=== PATIENT | female | born 1955 | race Caucasian/White ===

== ENCOUNTER 2017-05-05 10:42 | Outpatient (CLI) | payer BC | END 2017-05-05 10:43 | disposition home or self-care (01) | LOC: BICMAMMO 10:42 | PROVIDERS: ATTEND Internal Medicine | DX: Z12.31 Encounter for screening mammogram for malignant neoplasm of breast (principal) | CPT/HCPCS: 77063; 77067 ==

== ENCOUNTER 2018-04-13 08:34 | Outpatient (CLI) | payer BC ==
--- NOTE | 2018-04-13 11:26 | RAD ---
AIR CONTRAST ESOPHAGRAM: INDICATION: Dysphagia. FINDINGS: Swallowing mechanism is intact. Swallowing in the hypopharynx appears normal. The esophagus is unre markable. There is no stricture or mucosal lesion. There is a small sliding diaphragmatic hernia. Mild GE reflux was demonstrated when the patient is p laced recumbent. There is no evidence of luminal narrowing or stricture. A 12 mm barium tablet was swallowed and passed through the EG junction without difficulty. IMPRESSION: Small sliding diaphragmatic hernia with mild gastroesophageal reflux noted when the patient was place d recumbent. POS: NATHALIA
== END 2018-04-13 08:35 | disposition home or self-care (01) ==
LOC: RAD 08:34
PROVIDERS: ATTEND Internal Medicine Gastroenterology
DX: R13.10 Dysphagia, unspecified (principal); K44.9 Diaphragmatic hernia without obstruction or gangrene; K21.9 Gastro-esophageal reflux disease without esophagitis
CPT/HCPCS: 74220

== ENCOUNTER 2018-04-27 11:58 | Outpatient (CLI) | payer BC ==
--- NOTE | 2018-04-27 13:32 | ULT ---
THYROID ULTRASOUND: HISTORY: Dysphagia. COMPARISON: None. TECHNIQUE: Sagittal and transverse imaging of the thyroid gland is performed. FINDINGS: The thyroid gland has a homogeneous echotexture. No masses. The thyroid isthmus measures 0.2 cm. The right thyroid lobe measures 3.4 x 1.1 x 0.9 cm. The left thyroid lobe measures 1.0 x 0.5 x 3.3 c m. IMPRESSION: Unremarkable thyroid ultrasound. POS: SARINA
== END 2018-04-27 11:59 | disposition home or self-care (01) ==
LOC: BICULT 11:58
PROVIDERS: ATTEND Internal Medicine Gastroenterology
DX: R13.10 Dysphagia, unspecified (principal)
CPT/HCPCS: 76536

== ENCOUNTER 2018-08-21 10:24 | Outpatient (CLI) | payer BC ==
--- NOTE | 2018-08-21 11:26 | MMO ---
Bilateral MAMMO Bilat Screen [facility]. CLINICAL HISTORY: Patient is 63 years old and is seen for screening. The patient has no family history of breast cancer. The patient has no personal history of cancer. VIEWS: The views performed were: bilateral craniocaudal with tomosynthesis and bilateral mediolateral oblique with tomosynthesis. FILMS COMPARED: The present examination has been compared to prior imaging studies performed at [facility] on 01/20/2011, 03/01/2012, 03/02/2013, 02/20/2015 and 05/05/2017. MAMMOGRAM FINDINGS: There are scattered fibroglandular densities. There are no suspicious masses, suspicious calcifications, or new areas of architectural distortion. IMPRESSION: THERE IS NO MAMMOGRAPHIC EVIDENCE OF MALIGNANCY. A ROUTINE FOLLOW-UP MAMMOGRAM IN 1 YEAR IS RECOMMENDED. THE RESULTS OF THIS EXAM WERE SENT TO THE PATIENT. ACR BI-RADS Category 1 - Negative MAMMOGRAPHY NOTE: 1. A negative mammogram report should not delay a biopsy if a dominant of clinically suspicious mass is present. 2. Approximately 10% to 15% of breast cancers are not detected by mammography. 3. Adenosis and dense breasts may obscure an underlying neoplasm.
--- NOTE | 2018-08-21 11:38 | BD ---
BONE DENSITOMETRY USING DEXA: HISTORY: Postmenopausal screening for osteoporosis. FINDINGS: Lumbar Spine: BMD (g/cm2) L1 0.685 T-Score: -2.8 Z-Score: -1.3 L2 0.870 T-Score: -1.4 Z-Score: 0.2 L3 0.867 T-Score: -2.0 Z-Score: -0.3 L4 0.847 T-Score: -1.9 Z-Score: -0.2 L1-L4 0.819 T-Score: -2.1 Z-Score: 0.4 Femoral Neck: 0.539 T-Score: -2.8 Z-Score: -1.4 Total Femur: 0.731 T-Score: -1.7 Z-Score: -0.6 Impression: Osteoporosis. POS: TPC
== END 2018-08-21 10:25 | disposition home or self-care (01) ==
LOC: BICMAMMO 10:24
PROVIDERS: ATTEND Internal Medicine
DX: Z12.31 Encounter for screening mammogram for malignant neoplasm of breast (principal); Z78.0 Asymptomatic menopausal state; M81.0 Age-related osteoporosis without current pathological fracture
CPT/HCPCS: 77063; 77067; 77080

== ENCOUNTER 2019-06-07 09:02 | Outpatient (CLI) | payer BC ==
--- NOTE | 2019-06-07 10:49 | MRI ---
MRI lumbar spine noncontrast HISTORY: Low back pain with bilateral radiculopathy. FINDINGS: Radiographs are not available for direct correlation, therefore the lowest lumbar type vert ebra will be designated as L5, with the remainder number accordingly. There is desiccation of all of the intervertebral discs. Vertebral body heights are maintained. Scattered discogenic endplate heike nges within the bone marrow. T12-L1: Mild osteophytosis. Central canal and neural foramina are patent. L1-2: Mild right posterolateral disc bulge. No significant compromise of the central canal or neural foramina. L2-3: Disc space narrowing. Minimal degenerative retrolisthesis. Mild posterior disc bulge. Thecal sa c remains patent. Degenerative changes of the facets. Mild to moderate bilateral foraminal stenoses. L3-4: Mild disc space narrowing. Posterior disc bulge and circumferential degenerative changes. Mild stenosis of the central canal. Mild to moderate stenosis of each neural foramen. L4-5: Discogenic endplate changes are most pronounced at this level. There is posterior disc bulge an d circumferential degenerative changes. Thecal sac is patent. Moderate bilateral foraminal stenoses. L5-S1: Disc space narrowing. Thecal sac is patent. Degenerative changes of the facets. Mild stenosis of each neural foramen. IMPRESSION: Mild to moderate degenerative changes and foraminal stenoses as detailed above. No focal disc herniation or nerve root compression are evident.
== END 2019-06-07 09:03 | disposition home or self-care (01) ==
LOC: BICMRI 09:02
PROVIDERS: ATTEND Nurse Practitioner Family
DX: M48.062 Spinal stenosis, lumbar region with neurogenic claudication (principal); M47.816 Spondylosis without myelopathy or radiculopathy, lumbar region; M47.817 Spondylosis without myelopathy or radiculopathy, lumbosacral region
CPT/HCPCS: 72148

== ENCOUNTER 2019-11-23 09:39 | Outpatient (CLI) | payer BC ==
--- NOTE | 2019-11-23 09:55 | RAD ---
Chest 2 views HISTORY: Dyspnea. FINDINGS: Cardiac silhouette and pulmonary vasculature are unremarkable. Mediastinum is midline. Lungs are well-inflated. No confluent airspace consolidation, pneumothorax, or pleural fluid are evid ent. IMPRESSION : No abnormalities are demonstrated.
--- NOTE | 2019-11-23 11:17 | BD ---
BONE DENSITOMETRY USING DEXA: Date: 11/23/2019 HISTORY: Postmenopausal screening for osteoporosis. FINDINGS: Lumbar Spine: BMD (g/cm2) L1 0.719 T-Score: -2.5 Z-Score: -0.9 L2 0.881 T-Score: -1.3 Z-Score: 0.4 L3 0.833 T-Score: -2.3 Z-Score: -0.5 L4 0.917 T-Score: -1.3 Z-Score: 0.6 L1-L4 0.840 T-Score: -1.9 Z-Score: -0.2 Femoral Neck: 0.563 T-Score: -2.6 Z-Score: -1.1 Total Femur: 0.791 T-Score: -1.2 Z-Score: 0.0 There has been interval improvement of 2.5% in the bone mineral density of the lumbar spine and an im provement of 8.3% in the proximal femur since 08/21/2018. IMPRESSION: Osteoporosis. POS: AH
--- NOTE | 2019-11-23 11:20 | MMO ---
Bilateral MAMMO Bilat Screen [facility]DI[facility]LEN. CLINICAL HISTORY: Patient is 64 years old and is seen for screening. The patient has no family history of breast cancer. The patient has no personal history of cancer. VIEWS: The views performed were: bilateral craniocaudal with tomosynthesis and bilateral mediolateral oblique with tomosynthesis. FILMS COMPARED: The present examination has been compared to prior imaging studies performed at [facility] on 03/02/2013, 02/20/2015, 05/05/2017 and 08/21/2018. This study has been interpreted with the assistance of computer-aided detection. MAMMOGRAM FINDINGS: The breasts are heterogeneously dense, which could obscure a lesion on mammography. There are no suspicious masses, suspicious calcifications, or new areas of architectural distortion. IMPRESSION: THERE IS NO MAMMOGRAPHIC EVIDENCE OF MALIGNANCY. A ROUTINE FOLLOW-UP MAMMOGRAM IN 1 YEAR IS RECOMMENDED. THE RESULTS OF THIS EXAM WERE SENT TO THE PATIENT. ACR BI-RADS Category 1 - Negative MAMMOGRAPHY NOTE: 1. A negative mammogram report should not delay a biopsy if a dominant of clinically suspicious mass is present. 2. Approximately 10% to 15% of breast cancers are not detected by mammography. 3. Adenosis and dense breasts may obscure an underlying neoplasm. Reported by: SHANIA DOWNEY MD Electonically Signed: [id number]
== END 2019-11-23 09:40 | disposition home or self-care (01) ==
LOC: BICRAD 09:39
PROVIDERS: ATTEND Internal Medicine
DX: Z12.31 Encounter for screening mammogram for malignant neoplasm of breast (principal); M81.0 Age-related osteoporosis without current pathological fracture; R06.02 Shortness of breath
CPT/HCPCS: 71046; 77063; 77067; 77080

== ENCOUNTER 2021-09-01 15:12 | Outpatient (CLI) | payer MEDICARE, BC | END 2021-09-01 15:13 | disposition home or self-care (01) | LOC: BICRAD 15:12 | PROVIDERS: ATTEND Internal Medicine | DX: M25.552 Pain in left hip (principal); M47.816 Spondylosis without myelopathy or radiculopathy, lumbar region ==

== ENCOUNTER 2021-09-15 10:18 | Outpatient (CLI) | payer MEDICARE, BC | END 2021-09-15 10:19 | disposition home or self-care (01) | LOC: BICMAMMO 10:18 | PROVIDERS: ATTEND Internal Medicine | DX: Z12.31 Encounter for screening mammogram for malignant neoplasm of breast (principal) | CPT/HCPCS: 77063; 77067 ==

== ENCOUNTER 2022-12-17 09:59 | Outpatient (CLI) | payer MEDICARE, BC | END 2022-12-17 10:00 | disposition home or self-care (01) | LOC: BICMAMMO 09:59 | PROVIDERS: ATTEND Internal Medicine | DX: Z12.31 Encounter for screening mammogram for malignant neoplasm of breast (principal); Z13.820 Encounter for screening for osteoporosis; M85.89 Other specified disorders of bone density and structure, multiple sites; M81.0 Age-related osteoporosis without current pathological fracture; Z78.0 Asymptomatic menopausal state | CPT/HCPCS: 77063; 77067; 77080 ==

== ENCOUNTER 2024-04-20 15:01 | Outpatient (CLI) | payer BC, MEDICARE | END 2024-04-20 15:02 | disposition home or self-care (01) | LOC: BICMAMMO 15:01 | PROVIDERS: ATTEND Internal Medicine | DX: Z12.31 Encounter for screening mammogram for malignant neoplasm of breast (principal) | CPT/HCPCS: 77063; 77067 ==